=== PATIENT | female | born 1980 | race Caucasian/White ===

== ENCOUNTER 2024-01-25 03:13 | Emergency (ER) | payer BC, SELFPAY ==
--- NOTE | ~2024-01-25 | CT_ITS ---
EXAMINATION: CT ABDOMEN AND PELVIS WITH CONTRAST CLINICAL INFORMATION: Reason for Exam Right upper quadrant abdominal pain after a burger COMPARISON: None available. TECHNIQUE: Multidetector volumetric images were obtained from the superior aspect of the liver through the pubic symphysis following administration 100 mL of Omnipaque 350 intravenous contrast. Sagittal and coronal reformatted images were obtained on the technologist's workstation. Oral contrast: No This CT examination was performed using dose optimization techniques as appropriate, variously including the following: *Automated exposure control *Adjustment of mA and/or kV according to patient size (this includes techniques or standardized protocols for targeted exams where dose is matched to indication/reason for exam; i.e. extremities or head) *Use of iterative reconstruction technique DLP: 1133 mGy-cm FINDINGS: LUNG BASES: The visualized lung bases are unremarkable. LIVER, GALLBLADDER, AND BILIARY TREE: The liver is normal in size, shape, and attenuation. No focal hepatic lesion or biliary ductal dilatation is present. The gallbladder is unremarkable with no evidence of radiopaque gallstones, gallbladder wall thickening, or obvious pericholecystic inflammatory changes. PANCREAS: Mild fatty atrophy suspected. SPLEEN: Unremarkable. ADRENAL GLANDS: Unremarkable. KIDNEYS AND URETERS: Bilateral nephrograms are symmetric. No hydronephrosis or obstructing calculus identified. BLADDER: Minimally distended and not adequately evaluated. GASTROINTESTINAL TRACT: Postoperative changes from gastric bypass surgery. No evidence of bowel obstruction or significant wall thickening. Appendix appears nondilated. No free fluid or free air is seen. ABDOMINAL WALL: Small fat-containing umbilical hernia. LYMPH NODES: Normal. VASCULAR: Unremarkable. PELVIC VISCERA: Unremarkable. OSSEOUS STRUCTURES: Endplate osteophytes in the visualized thoracic spine. Facet arthropathy of the lower lumbar spine. CT/CT abdomen pelvis w IV con IMPRESSION: No acute findings identified in the abdomen/pelvis. Postoperative changes from gastric bypass surgery.
[2024-01-25 03:17] VITALS: BP 132/73; PULSE 69; RESP 16; TEMP 36.5; O2SAT 99; BMI 54.9
[2024-01-25 03:47] LABS: Basophils Percent Auto 0.3 % (0-2); Eosinophils Absolute Auto 0.1 X10*3/uL (0.0-0.4); Eosinophils Percent Auto 1.2 % (0-4); Hematocrit 41.1 % (37.0-47.0); Imm Gran Abs Auto 0.03 X10*3/uL (0.00-0.03); Imm Gran Pct Auto 0.3 % (0.0-0.4); Lymphocytes Absolute Auto 2.1 X10*3/uL (1.2-4.9); Lymphocytes Percent Auto 18.1 % (20-40); MANUAL DIFF FLAG NO; Mean Corpuscular HGB Conc 34.1 g/dl (31.0-35.0); Mean Corpuscular Hemoglobin 30.5 pg (27.0-33.0); Mean Corpuscular Volume 89.5 fL (80.0-98.0); Mean Platelet Volume 10.2 fL (9.4-12.3); Monocytes Absolute Auto 0.8 X10*3/uL (0.1-1.2); Monocytes Percent Auto 6.9 % (2-11); Neutrophils Absolute Auto 8.4 x10*3/uL (2.0-8.3); Neutrophils Percent Auto 73.2 % (45-73); Platelet Count 315 X10*3/uL (160-400); Red Blood Count 4.59 X10*6/uL (4.20-5.50); Red Cell Distribution Width 12.9 % (11.0-16.0); White Blood Count 11.5 X10*3/uL (4.8-10.8)
[2024-01-25 04:03] LABS: Alanine Aminotransferase 121 U/L (0-31); Albumin Level 4.1 g/dL (3.5-5.0); Alkaline Phosphatase 107 U/L (39-117); Anion Gap 13 (12-20); Aspartate Amino Transferase 244 U/L (5-31); Bilirubin Direct 0.5 mg/dL (0.0-0.5); Bilirubin Total 0.8 mg/dL (0.0-1.0); Blood Urea Nitrogen 15 mg/dL (9-16); Calcium 9.6 mg/dL (8.4-10.2); Carbon Dioxide 26 mmol/L (22-29); Chloride 105 mmol/L (96-108); Creatinine Clr Calc Pharmacy 126.3; Estimated Glomerular Filt Rate > 60; Glucose Random 113 mg/dL (60-115); Lipase 46 U/L (8-78); Potassium 3.9 mmol/L (3.3-5.1); Sodium 140 mmol/L (135-145); Total Protein 7.1 g/dL (6.5-8.0)
--- NOTE | 2024-01-25 04:23 | ED_ITS ---
HPI - Abdominal Pain General Chief Complaint: Abdominal Pain Stated Complaint: upper abd/side pain Time Seen by Provider: 01/25/24 04:05 History of Present Illness HPI narrative: Patient is a 43-year-old female presents today with having right upper quadrant abdominal pain after eating [place] onion soup and burger. The pain is dull it is over the right upper quadrant and radiates to the back it is not associated with chest pain shortness of breath diaphoresis it is associated with nausea. Patient is from home. Had a similar pain last week. It subsided. This 1 did not. Patient denies any coughing congestion upper respiratory symptoms. Positive history of abdominal surgery in the past. Patient had a gastric bypass done in 2009. Related Data Previous Rx's ?Medication ?Instructions ?Recorded pantoprazole 40 mg tablet,delayed 40 mg PO DAILY #14 tabs 01/25/24 release (Protonix) Allergies Allergy/AdvReac Type Severity Reaction Status Date / Time No Known Allergies Allergy Verified 01/25/24 03:20 Review of Systems Review of Systems Positive abdominal pain in the right upper quadrant Yes all other systems are reviewed and are negative [facility] Past Medical History Attestation statement: The following information was validated with the patient. Social History Social History Alcohol intake: current Alcohol intake frequency: holidays/special occasions only Smoked in Last 30 Days: No Use of substances other than those prescribed or required for medical reasons: No Any prior treatment program specific to substance use: No Advance Directives: No Advance Directives Information Provided: Yes Do you have a plan to hurt others: No Plan Patient : No Physical Exam ED Vital Signs: Vital Signs - 24 hr 01/25/24 03:17 01/25/24 05:57 Temperature 97.7 F 98.0 F Pulse Rate 69 88 Respiratory Rate 16 14 Blood Pressure 132/73 105/63 Pulse Oximetry 99 97 Oxygen Delivery Method Room Air Room Air BMI result Body Mass Index 54.9 Appearance: Alert. Oriented X3. No acute distress. Eyes: Pupils equal, round and reactive to light. ENT: Pharynx normal. Neck: Normal inspection. Neck supple. No lymph nodes noted. No crepitus CVS: Normal heart rate and rhythm. Pulses normal. Normal S1 and S2 Respiratory: No respiratory distress. Breath sounds normal. No Wheezing. No rales Abdomen: Soft and nontender. No rigidity. No distention. good BS x4 Skin: Skin warm and dry. Normal skin color. Normal skin turgor. Extremities: No lower extremity edema. Neurovascular intact to all extremities. No Lacerations. No Rash Neuro: Oriented X 3. No motor deficit. No sensory deficit. Moving all extermities. No slurred speech Medical Decision Making Medical Decision Making [facility] Narrative: Patient presented today with having epigastric pain right upper quadrant pain after eating [place] onion soup and burger. Patient's LFT minimally elevated consistent with fatty liver. Lipase is normal. There has no evidence for pancreatitis. CT scan of the abdomen pelvis was done. It showed no evidence of gallstone. No evidence of gallbladder wall thickening. Patient was given pain medication. The symptom has since resolved. Question gastritis will start patient on PPIs. Close follow-up on an outpatient basis. Avoid fatty foods. Reflux precaution. In stable condition. Differential Diagnosis Differential Diagnoses: The differential diagnosis associated with the presentation includes Cholecystitis, gastritis Admission/Observation Consideration of admission/observation: Escalation of care including admission/observation considered Lab Data [facility] Lab Attestation statement: I reviewed the patient's lab results. 01/25/24 03:42 01/25/24 03:42 Labs: Lab Results 01/25/24 01/25/24 Range/Units 03:42 04:30 WBC 11.5 H (4.8-10.8) X10*3/uL RBC 4.59 (4.20-5.50) X10*6/uL Hgb 14.0 (12.0-16.0) g/dl Hct 41.1 (37.0-47.0) % MCV 89.5 (80.0-98.0) fL MCH 30.5 (27.0-33.0) pg MCHC 34.1 (31.0-35.0) g/dl RDW 12.9 (11.0-16.0) % Plt Count 315 (160-400) X10*3/uL MPV 10.2 (9.4-12.3) fL Immature Gran % (Auto) 0.3 (0.0-0.4) % Neut % (Auto) 73.2 H (45-73) % Lymph % (Auto) 18.1 L (20-40) % Ida % (Auto) 6.9 (2-11) % Eos % (Auto) 1.2 (0-4) % Baso % (Auto) 0.3 (0-2) % Lymph # (Auto) 2.1 (1.2-4.9) X10*3/uL Ida # (Auto) 0.8 (0.1-1.2) X10*3/uL Eos # (Auto) 0.1 (0.0-0.4) X10*3/uL Baso # (Auto) 0.0 (0.0-0.2) X10*3/uL Abs Immat Gran (auto) 0.03 (0.00-0.03) X10*3/uL Absolute Neuts (auto) 8.4 H (2.0-8.3) x10*3/uL Absolute Nucleated RBC 0.000 (0.0-0.012) X10*3/uL Nucleated RBC % (auto) 0.0 (0.0-0.2) /100WBC Sodium 140 (135-145) mmol/L Potassium 3.9 (3.3-5.1) mmol/L Chloride 105 (96-108) mmol/L Carbon Dioxide 26 (22-29) mmol/L Anion Gap 13 (12-20) BUN 15 (9-16) mg/dL Creatinine 0.75 (0.5-1.4) mg/dL Estim Creat Clear Calc 126.3 Estimated GFR > 60 Random Glucose 113 (60-115) mg/dL Calcium 9.6 (8.4-10.2) mg/dL Total Bilirubin 0.8 (0.0-1.0) mg/dL Direct Bilirubin 0.5 (0.0-0.5) mg/dL AST 244 H (5-31) U/L ALT 121 H (0-31) U/L Alkaline Phosphatase 107 (39-117) U/L Total Protein 7.1 (6.5-8.0) g/dL Albumin 4.1 (3.5-5.0) g/dL Lipase 46 (8-78) U/L Urine Color Dark Yellow Urine Appearance Cloudy Urine pH 5.0 (5.0-9.0) Ur Specific [place] >= 1.030 H (1.005-1.025) Urine Protein Trace (Neg-Trace) mg/dL Urine Glucose (UA) Negative (Negative) mg/dL Urine Ketones Negative (Negative) mg/dL Urine Blood Negative (Negative) Urine Nitrite Negative (Negative) Ur Leukocyte Esterase Trace H (Negative) Urine RBC 0-2 (0-2) /HPF Urine WBC 0-5 (0-5) /HPF Ur Squamous Epith Cells 6-10 (0-2) /HPF Calcium Oxalate Crystal Present Urine Bacteria 2+ (None Seen) Hyaline Casts 3-5 (0-2) /LPF Urine Test NEGATIVE (NEGATIVE) Independent Interpretation I performed an independent interpretation of an: CT Scan (No gross obstruction) Radiology Impression Discussion of test interpretation with radiology: I have reviewed the radiologist's reading. Independent Historian Clinical information obtained from an independent historian. History obtained from or confirmed by: Spouse Chronic Conditions Previous history of gastric bypass Medications Administered Discontinued Medications Generic Name Dose Route Start Last Admin Trade Name Freq PRN Reason Stop Dose Admin Hydromorphone HCl 0.5 mg 01/25/24 04:22 01/25/24 04:34 Hydromorphone Hcl 0.5 Mg/0.5 Ml Syringe IVPUSH 01/25/24 04:23 0.5 mg ONCE ONE Administration Protocol Sodium Chloride 1,000 mls @ 999 mls/hr 01/25/24 04:30 01/25/24 06:17 Ns IV 01/25/24 05:30 Infused .Q1H1M SANTI Infusion Iohexol 100 ml 01/25/24 04:52 01/25/24 04:52 Iohexol 350 Mg/Ml 100 Ml Infus..Btl IV 01/25/24 04:53 100 ml ONCE ONE Administration Ondansetron HCl 4 mg 01/25/24 04:22 01/25/24 04:34 Ondansetron Hcl 4 Mg/2 Ml Vial IVPUSH 01/25/24 04:23 4 mg ONCE ONE Administration Discharge Plan Discharge Clinical Impression: Gastritis Patient Disposition: Home, Self-Care Instructions: Gastritis (DC) Prescriptions: New pantoprazole [Protonix] 40 mg tablet,delayed release (DR/EC) 40 mg PO DAILY Qty: 14 0RF Referrals: Juaquin Bassett MD [Physician] - Physician,Unknown J [Primary Care Provider] - Print Language: Czech
[2024-01-25] MEDS: 0.9 % Sodium Chloride 1,000 ML 999 ML IV (04:34)
[2024-01-25] MEDS: HYDROmorphone HCl 0.5 MG/0.5 ML SYRINGE IVPUSH (04:34)
[2024-01-25] MEDS: ondansetron HCL 4 MG/2 ML VIAL IVPUSH (04:34)
[2024-01-25 04:38] LABS: Appearance Urine Cloudy; Color Urine Dark Yellow; Glucose Urine UA Negative (Negative); Leukocyte Esterase Urine Trace (Negative); Nitrite Urine Negative (Negative); Specific Gravity - Urine >= 1.030 (1.005-1.025); UMIC TRIGGER UACC YES; Urine Blood Negative (Negative); Urine Ketones Negative (Negative); Urine Protein Trace mg/dL (Neg-Trace)
[2024-01-25 04:39] LABS: UPreg QC Valid YES; Urine Pregnancy NEGATIVE (NEGATIVE)
--- NOTE | 2024-01-25 04:39 | PC.NURSE ---
#20 IV L-AC, labs sent, medication administered as ordered.
[2024-01-25] MEDS: iohexoL 350 MG/ML 100 ML INFUS..BTL IV (04:52)
[2024-01-25 04:55] LABS: Bacteria Urine 2+ (None Seen); Calcium Oxalate Crystals Urine Present; RBC Urine 0-2 /HPF (0-2); WBC Urine 0-5 /HPF (0-5)
--- OUTSIDE RECORDS SUMMARY | 2024-01-25 05:01 | XMS_ITS | Continuity of Care Document ---
Author Organization [facility] e Medicine Address [address], 4t [address] [place] [address]- Care Team Providers Care Shoe Cleaner Name Role Phone Antolin CASTRO, Imelda M Primary Care Physician [place] [facility] [place](s[place] 12/19/22 - 01/18/23 [facility] Reproductive Medicine [address], 4th [address] [place] [id number] Allergies, Adverse Reactions, Alerts No Known Allergies Medications albuterol CFC free 90 mcg/inh inhalation aerosol 2, puffs, Inhalation, 4 times a day, PRN, # 18 Gm, Refills 0, Maintenance, 08/28/22 12:36:00 EST, Aerosol Start Date: 08/28/22 Status: Ordered buPROPion-naltrexone By Mouth, 2 times a day, 0 Refills, Maintenance, 08/28/22 12:31:00 EST, Partial fill upon patient request if the prescription is for a schedule II opioid drug. Start Date: 08/28/22 Status: Ordered BusPIRone By Mouth, 2 times a day, 0 Refills, Maintenance, 08/28/22 12:35:00 EST, Partial fill upon patient request if the prescription is for a schedule II opioid drug. Start Date: 08/28/22 Status: Ordered doxycycline hyclate 100 mg oral capsule 1 capsule = 100 mg, By Mouth, 2 times a day, # 10 capsule, 0 Refills, Maintenance, 09/26/22 16:50:00 EST, [id number], Partial fill upon patient request if the prescription is for a schedule II opioid drug., 158, cm, 08/28/22 11:38:00 EST, H... Start Date: 09/26/22 Stop Date: 10/01/22 Status: Ordered Ferrous Sulfate EC Refills 0, Maintenance, 08/28/22 12:34:00 EST, Partial fill upon patient request if the prescription is for a schedule II opioid drug. Start Date: 08/28/22 Status: Ordered Folic Acid Daily, 0 Refills, Maintenance, 08/28/22 11:39:00 EST, Partial fill upon patient request if the prescription is for a schedule II opioid drug. Start Date: 08/28/22 Status: Ordered levothyroxine 0.025 mg oral tablet 1 tablet = 25 mcg, By Mouth, Daily, 0 Refills, Maintenance, 08/28/22 12:32:00 EST, Partial fill upon patient request if the prescription is for a schedule II opioid drug. Start Date: 08/28/22 Status: Ordered Saxenda = 1.2 mg, Subcutaneous Infusion, Daily, 0 Refills, Maintenance, 08/28/22 12:32:00 EST, Partial fillupon patient request if the prescription is for a schedule II opioid drug. Start Date: 08/28/22 Status: Ordered Symbicort 80mcg/4.5mcg Inhaler 2, puffs, Inhalation, 2 times a day, # 10.2 Gm, Refills 0, Maintenance, 08/28/22 12:35:00 EST, Aerosol Start Date: 08/28/22 Status: Ordered Vitamin B12 0 Refills, Maintenance, 08/28/22 12:34:00 EST, Partial fill upon patient request if the prescription is for a schedule II opioid drug. Start Date: 08/28/22 Status: Ordered Vitamin D3 1000 intl units oral capsule 1 capsule = 25 mcg, By Mouth, Daily, 0 Refills, Maintenance, 08/28/22 12:34:00 EST, Partial fill upon patient request if the prescription is for a schedule II opioid drug. Start Date: 08/28/22 Status: Ordered ZyrTEC 10 mg oral tablet 1 tablet = 10 mg, By Mouth, Daily, # 30 tablet, 0 Refills, Maintenance, 08/28/22 12:36:00 EST, Tablet, Partial fill upon patient request if the prescription is for a schedule II opioid drug. Start Date: 08/28/22 Status: Ordered Problem List Condition Confirmation Course Effective Dates Status Health St atus Informant Asthma Confirmed Active Thyroid disease Confirmed Active Thyroid disorder Confirmed Active Mixed anxiety depressive disorder Confirmed Active Severe obesity Confirmed Active Social History Social History Type Response Smoking Status Never (less than 100 in lifetime) entered on: 08/28/22 Sex Patient Care team information Care Team Personnel Name: Antolin CASTRO , Imelda Galo Position: [facility] Outreach Member Role: PCP Address: Address: [address] [place] [address]- Care Team Related Persons Name: GLENYS BECERRA Address: home [address] [place] [address]
--- OUTSIDE RECORDS SUMMARY | 2024-01-25 05:01 | XMS_ITS | Continuity of Care Document ---
Author Organization [facility] Medicine Address [address] [place] [address], 4t [address] [place] [address]- Care Team Providers Care Billiard Table Repairer Name Role Phone Antolin CASTRO, Imelda M Primary Care Physician [place] [facility] [place](s[place] 10/29/22 - 11/28/22 [facility] Reproductive Medicine [address] [place] [address], 4th [address] [place] [id number] Allergies, Adverse Reactions, Alerts No Known [...] capsule, 0 Refills, Maintenance, 09/26/22 16:50:00 EST, [id number], Partial fill upon patient request if the [...] Care team information Care Team Personnel Name: Imelda Dangelo NP Position: S Outreach Member Role: PCP Address: Address: [address] [place] [address]- Care Team Related Persons Name: GLENYS BECERRA Address: home [address] [place] [address]
--- OUTSIDE RECORDS SUMMARY | 2024-01-25 05:01 | XMS_ITS | Continuity of Care Document ---
Author Organization [facility] e Medicine Address [address] [facility], 4t [address] [place] [address]- Care Team Providers Care Amusement Centre Manager Name Role Phone Antolin CASTRO, Imelda M Primary Care Physician [place] [facility] [place] [facility] Reproductive Medicine [address], 4th [address] [place] [address]- Attending Physician: Not on Staff, Attending MD Referring Physician: Belia Montilla MD Allergies, Adverse Reactions, Alerts No Known Allergies [...] opioid drug. Start Date: 08/28/22 Status: Ordered Ferrous Sulfate EC Refills 0, [...] disorder Confirmed Active Severe obesity Confirmed Active Procedures Procedure Date Related Diagnosis Body Site Status Gastric bypass 2009 Completed Vital Signs Most recent to oldest [Reference Range]: 1 Height 158 cm (08/28/22 11:38 AM) Weight 145.9 kg (08/28/22 11:38 AM) Pulse Rate [55-90 bpm] 99 bpm *H* (08/28/22 11:38 AM) Body Mass Index [18.5-24.99 kg/m2] 58.44 kg/m2 *>HHI* (08/28/22 11:38 AM) Blood Pressure [90-138/55-84 mm Hg] 119/ 81mm Hg (08/28/22 11:38 AM) Blood pressure sites Arm, right (08/28/22 11:38 AM) Social History Social History Type Response Smoking Status Never (less than 100 in lifetime) entered on: 08/28/22 Sex Note * Joseph Doty MA: PERFORM, SIGN, VERIFY Event Display: Patient Education/Instruction Authored Date: [id number] [facility] *[facility] Clinical Summary Name LELA BECERRA Age 42 Years 1980 PCP Antolin CASTRO , Imelda Galo PCP Visit Date 08/28/2022 11:14:00 Additional Instructions: Scheduled Appointments?? Future Appointments ?No Future Appointments Scheduled Follow-Up Instructions ?? Diagnosis Encounter for procreative management, unspecified; Age-related physical debility; Morbid (severe) obesity due to excess calories Medications: Please continue your medications until treatment is completed or stopped by your provider. Discuss any questions related to medications with your provider. Medications to Continue with No Changes These medications were not printed or sent to your pharmacy Folic Acid Daily. Next Dose: Allergy Info:?? NKA Medications Given This Visit Future Orders ?HIV Ab-Ag 4th Generation? Order Date:08/28/22?- Complete within?6 months ?Prolactin Level? Order Date:08/28/22?- Complete within?6 months ?Hepatitis C Ab? Order Date:08/28/22?- Complete within?6 months ?FSH? Order Date:08/28/22?- Complete within?6 months ?Estradiol (Female >= 16yrs)? Order Date:08/28/22?- Complete within?6 months ?Rubella (Djiboutian Measles) IgG? Order Date:08/28/22?- Complete within?6 months ?Anti Mullerian Hormone? Order Date:08/28/22?- Complete within?6 months ?Type and Screen? Order Date:08/28/22?- Complete within?6 months ?Vitamin D 25 Hydroxy Level? Order Date:08/28/22?- Complete within?6 months ?Hemoglobin A1C (Monitoring)? Order Date:08/28/22?- Complete within?6 months ?Hepatitis B Surface Antigen? Order Date:08/28/22?- Complete within?6 months ?Syphilis Testing formerly ordered as RPR? Order Date:08/28/22?- Complete within?6 months ?LH? Order Date:08/28/22?- Complete within?6 months ?TSH with T4 Reflex (Adults Only)? Order Date:08/28/22?- Complete within?6 months Vital Signs Height 158 cm Weight 145.9 kg BMI 58.44 kg/m2 Blood Pressure 119 mm Hg/81 mm Hg Temperature Pulse Rate 99 bpm Respiratory Rate 02 Sat Mode of Delivery / You can now view a summary of your hospital visit from the comfort of your home through a free online portal called [email or web address]. [email or web address] is a website that allows you to securely view your medical information including discharge summary, medications and follow-up visits. ??You can alsosend a secure electronic message to your doctor???s office to request appointments, renew medications or just ask a question. You can enroll at [email or web address] or register during your next office visit. Disclaimer:?? The information provided is of a general nature and is intended to be used in conjunction with the recommendations and advice of your health care practitioner. ??Every effort has been made to ensure that the information provided is accurate and complete at the time it is provided to you however, as your needs change, or, as new ??information becomes available, different or additional instructions may be required. If you have questions, please consult with your primary care provider or pharmacist, as appropriate. ??This information is not intended to serve as substitution for assessment and evaluation by a qualified health care provider. If you do not have a primary care provider, you may find a [facility] provider by calling [facility] at [phone]. For information about the plan of care including goals and instructions for your diagnosis, please see the patient education orders section of this document. Patient Education Materials?? The content of this educational material or handout may have been modified, supplemented, or adapted from its original content and format to support your individualized medical care. Additional Provider Instructions: Patient instructed to call with day 1 to schedule a HSG and have labs done on day 3 of cycle Patient Care team information Care Team Personnel Name: Imelda Dangelo NP Position: S Outreach Member Role: PCP Address: Address: [address] [place] [id number] Care Team Related Persons Name: GLENYS BECERRA
--- OUTSIDE RECORDS SUMMARY | 2024-01-25 05:01 | XMS_ITS | Continuity of Care Document ---
Author Organization [facility] e Medicine Address [address], 4t [address] [place] [address]- Care Team Providers Care Wooden Tank Erector Name Role Phone Antolin CASTRO, Imelda M Primary Care Physician En[place] [facility] [place] Date(s): 12/19/22 - 01/18/23 [facility] Reproductive Medicine [address], 4th [address] [place] [phone] Allergies, Adverse Reactions, Alerts No Known [...] capsule, 0 Refills, Maintenance, 09/26/22 16:50:00 EST, [id number], Partial fill upon patient request if the [...] Name: Antolin CASTRO , Imelda Galo Position: [facility] Outreach Member Role: PCP Address: Address: [address] [place] [address]- Care Team Related Persons Name: GLENYS BECERRA Address: home [address] [place] [address]
--- OUTSIDE RECORDS SUMMARY | 2024-01-25 05:01 | XMS_ITS | Continuity of Care Document ---
Author Organization [facility] e Medicine Address [address] [facility] [address], 4t [address] [place] [address]- Care Team Providers Care Industrial Gas Servicer Name Role Phone Antolin CASTRO, Imelda M Primary Care Physician En[place] [facility] [place] Date(s): 12/26/22 - 01/25/23 [facility] Reproductive Medicine [address], 4th [address] [place], [place] [address] Attending Physician: Elvis Barrera Admitting Physician: AdmtrElvis Referring Physician: AdmtrElvis Allergies, Adverse Reactions, Alerts No Known Allergies [...] capsule, 0 Refills, Maintenance, 09/26/22 16:50:00 EST, [id number], Partial fill upon patient request if the prescription is for a schedule II opioid drug., 158, cm, 01/03/23 11:38:00 EST, H... Start Date: 09/26/22 Stop [...] S Outreach Member Role: PCP Address: Address: [address] [place] [address]- Care Team Related Persons Name: GLENYS BECERRA Address: home [address] [place] [address]
--- OUTSIDE RECORDS SUMMARY | 2024-01-25 05:01 | XMS_ITS | Continuity of Care Document ---
Author Organization [facility] e Medicine Address [address], 4t [address] [place] [address]- Care Team Providers Care Pharmaceutical Representative Name Role Phone Antolin CASTRO, Imelda M Primary Care Physician [place] [facility] [place]24/22 - 10/24/22 [facility] Reproductive Medicine [address], 4th [address] [place] [address]- Allergies, Adverse Reactions, Alerts No Known Allergies [...] capsule, 0 Refills, Maintenance, 09/26/22 16:50:00 EST, [id number], Partial fill upon patient request if the [...] Name: Antolin CASTRO , Imelda Galo Position: [facility] Outreach Member Role: PCP Address: Address: [address] [place] [address]- Care Team Related Persons Name: GLENYS BECERRA
--- OUTSIDE RECORDS SUMMARY | 2024-01-25 05:01 | XMS_ITS | Continuity of Care Document ---
Author Organization [facility] Medicine Address [address] [place] [address], 4t [address] [place] [address]- Care Team Providers Care Transformer Molder Name Role Phone Antolin CASTRO, Imelda Galo Primary Care Physician [place] [facility] [place] 11/01/22 - 12/01/22 [facility] Reproductive Medicine [address], 4th [address] [place] [address]- Attending Physician: Elvis Barrera Admitting Physician: AdmtrElvis Referring Physician: Admtr, ArDinorah Allergies, Adverse Reactions, Alerts No Known Allergies [...] capsule, 0 Refills, Maintenance, 09/26/22 16:50:00 EST, [id number], Partial fill upon patient request if the [...] team information Care Team Personnel Name: Antolin CASRTO , Imelda Galo Position: S Outreach Member Role: PCP Address: Address: [address] [place] [address]- Care Team Related Persons Name: GLENYS BECERRA Address: home [address] [place] [address]
--- OUTSIDE RECORDS SUMMARY | 2024-01-25 05:01 | XMS_ITS | Continuity of Care Document ---
Author Organization [facility] Medicine Address [address] [facility], 4t [address] [place] [address]- Care Team Providers Care Human Resources Compensation Analyst Name Role Phone Antolin CASTRO, Imelda M Primary Care Physician [place] [facility] [facility] [id number] Date(s): 10/29/22 - 01/25/23 [facility] Reproductive Medicine [address] [facility], 4th [address] [place] [address]- Attending Physician: Claudia Abdalla MD Allergies, Adverse Reactions, Alerts No Known [...] capsule, 0 Refills, Maintenance, 09/26/22 16:50:00 EST, [id number], Partial fill upon patient request if the prescription is for a schedule II opioid drug., 158, cm, 08/28/22 11:38:00 EST, H... Start Date: 2/1/23 Stop Date: 10/01/22 Status: Ordered Ferrous Sulfate [...] S Outreach Member Role: PCP Address: Address: [address] [place] [address]- Care Team Related Persons Name: GLENYS BECERRA Address: home [address] [place] [id number]
--- OUTSIDE RECORDS SUMMARY | 2024-01-25 05:01 | XMS_ITS | Continuity of Care Document ---
Author Organization [facility] Address [address] [place] [address], [address] [place] [phone]- Care Team Providers Care Landscape Engineer Name Role Phone Antolin CASTRO, Imelda M Primary Care Physician Encounter [facility] Date(s): 11/01/22 - 11/08/22 [facility] [address] [facility], [address]th [address] [place] [phone]- Attending Physician: Belia Montilla MD Referring Physician: Fely Workman CNM Allergies, Adverse Reactions, Alerts No Known Allergies [...] capsule, 0 Refills, Maintenance, 09/26/22 16:50:00 EST, [id number], Partial fill upon patient request if the [...] Team Personnel Name: Imelda Dangelo NP Position: [facility] Outreach Member Role: PCP Address: Address: [address] [place] [phone]- Care Team Related Persons Name: GLENYS BECERRA Address: home [address] [place] [id number]
[2024-01-25 05:57] VITALS: BP 105/63; PULSE 88; RESP 14; TEMP 36.7; O2SAT 97
[2024-01-25] MEDS: Omeprazole 40 MG CAPSULE.DR PO (06:57)
[2024-01-25 07:00] VITALS: BP 120/69; PULSE 90; RESP 16; TEMP 36.5; O2SAT 96
== END 2024-01-25 07:01 | disposition home or self-care (01) ==
PROVIDERS: Emergency Provider Emergency Medicine Emergency Medical Services
DX: K29.70 Gastritis, unspecified, without bleeding (principal); R06.02 Shortness of breath; R10.11 Right upper quadrant pain
CPT/HCPCS: 36415; 74177; 80053; 81001; 81025; 82248; 83690; 85025; 96361; 96374; 96375; 99284; J1170; J2405; Q9967